=== PATIENT | female | born 1960 | race Caucasian/White ===

== ENCOUNTER → 2018-03-17 | Outpatient (CLI) | payer OTHER, MEDICAID | LOC: FIMAGING 13:23 → EDSTATUS 13:28 | PROVIDERS: ATTEND Physician Assistant | DX: I50.9 Heart failure, unspecified (principal); K44.9 Diaphragmatic hernia without obstruction or gangrene; M48.54XA Collapsed vertebra, not elsewhere classified, thoracic region, initial encounter for fracture ==